=== PATIENT | male | born 1960 | race Caucasian/White ===

== ENCOUNTER → 2025-02-14 10:30 | Outpatient (CLI) | payer OTHER, SELFPAY | PROVIDERS: Family Provider Nurse Practitioner Family; PCP Nurse Practitioner Family; Referring Provider Nurse Practitioner Family; Visit Provider Surgery | DX: L08.89 Other specified local infections of the skin and subcutaneous tissue (principal); B95.2 Enterococcus as the cause of diseases classified elsewhere; L97.812 Non-pressure chronic ulcer of other part of right lower leg with fat layer exposed; I10 Essential (primary) hypertension; R60.0 Localized edema | CPT/HCPCS: 11042; 87070; 87075; 87077; 87186; 87205; 99203; 99214 ==

== ENCOUNTER → 2025-02-21 09:50 | Outpatient (CLI) | payer OTHER, SELFPAY | PROVIDERS: Family Provider Nurse Practitioner Family; PCP Nurse Practitioner Family; Referring Provider Nurse Practitioner Family; Visit Provider Surgery | DX: L97.812 Non-pressure chronic ulcer of other part of right lower leg with fat layer exposed (principal) | CPT/HCPCS: 11042 ==

== ENCOUNTER → 2025-02-21 10:12 | Outpatient (CLI) | payer OTHER, SELFPAY ==
--- NOTE | 2025-02-21 10:13 | DI.RAD.S_ITS ---
PROCEDURE: XR TIBIA FUBULA RT 2V INDICATIONS: eval for bone fragments, osteo TECHNIQUE: 2 views of the tibia and fibula were acquired. COMPARISON: None. FINDINGS: Bones: No acute fractures or dislocations. Chronic distal tibia and fibular fracture is healed with deformity. No suspicious bony lesions. No osseous erosions or periosteal reaction. Soft tissues: No suspicious or masses. Small dystrophic calcifications in the soft tissues anterior to the distal tibia. No soft tissue gas. IMPRESSION: No twan evidence of osteomyelitis. Plain film radiographs can be insensitive to osteomyelitis during the initial phase of the disease process. If there is clinical concern for osteomyelitis, then three-phase nuclear medicine bone scan or MRI should be considered for further evaluation. Dictated by: Helene Henson MD, PhD on 02/21/2025 at 11:17 Approved by: Helene Henson MD, PhD on 02/21/2025 at 11:18
== END ==
PROVIDERS: Family Provider Nurse Practitioner Family; PCP Nurse Practitioner Family; Referring Provider Surgery; Visit Provider Surgery
DX: L97.812 Non-pressure chronic ulcer of other part of right lower leg with fat layer exposed (principal)
CPT/HCPCS: 11042; 73590

== ENCOUNTER → 2025-03-01 14:53 | Outpatient (CLI) | payer OTHER, SELFPAY | LOC: WC 14:53 | PROVIDERS: Family Provider Nurse Practitioner Family; PCP Nurse Practitioner Family; Referring Provider Nurse Practitioner Family; Visit Provider Surgery | DX: L08.9 Local infection of the skin and subcutaneous tissue, unspecified (principal); L97.812 Non-pressure chronic ulcer of other part of right lower leg with fat layer exposed; I10 Essential (primary) hypertension | CPT/HCPCS: 11042 ==

== ENCOUNTER → 2025-03-08 14:51 | Outpatient (CLI) | payer OTHER, SELFPAY | PROVIDERS: Family Provider Nurse Practitioner Family; PCP Nurse Practitioner Family; Referring Provider Nurse Practitioner Family; Visit Provider Surgery | DX: L97.812 Non-pressure chronic ulcer of other part of right lower leg with fat layer exposed (principal); L08.9 Local infection of the skin and subcutaneous tissue, unspecified | CPT/HCPCS: 11042 ==

== ENCOUNTER → 2025-03-08 16:56 | Outpatient (CLI) | payer OTHER, SELFPAY ==
--- NOTE | 2025-03-08 16:57 | DI.MRI.S_ITS ---
PROCEDURE: MR LOWER LEG RT WO/W CON
== END ==
PROVIDERS: Family Provider Nurse Practitioner Family; PCP Nurse Practitioner Family; Referring Provider Surgery; Visit Provider Surgery
DX: L97.812 Non-pressure chronic ulcer of other part of right lower leg with fat layer exposed (principal); M86.9 Osteomyelitis, unspecified; S86.811A Strain of other muscle(s) and tendon(s) at lower leg level, right leg, initial encounter
CPT/HCPCS: 73720; A9579

== ENCOUNTER → 2025-03-15 09:32 | Outpatient (CLI) | payer OTHER, SELFPAY | LOC: WC 09:34 | PROVIDERS: Family Provider Nurse Practitioner Family; PCP Nurse Practitioner Family; Referring Provider Nurse Practitioner Family; Visit Provider Surgery | DX: L97.812 Non-pressure chronic ulcer of other part of right lower leg with fat layer exposed (principal); M86.161 Other acute osteomyelitis, right tibia and fibula; L53.8 Other specified erythematous conditions; F17.200 Nicotine dependence, unspecified, uncomplicated | CPT/HCPCS: 11042; 99213 ==

== ENCOUNTER → 2025-03-22 12:13 | Outpatient (CLI) | payer OTHER, SELFPAY | LOC: WC 12:13 | PROVIDERS: Family Provider Nurse Practitioner Family; PCP Nurse Practitioner Family; Referring Provider Nurse Practitioner Family; Visit Provider Surgery | DX: L97.812 Non-pressure chronic ulcer of other part of right lower leg with fat layer exposed (principal); M86.161 Other acute osteomyelitis, right tibia and fibula; L53.8 Other specified erythematous conditions | CPT/HCPCS: 11042 ==

== ENCOUNTER → 2025-04-04 14:41 | Outpatient (CLI) | payer OTHER, SELFPAY | LOC: WC 14:45 | PROVIDERS: Family Provider Nurse Practitioner Family; PCP Nurse Practitioner Family; Referring Provider Nurse Practitioner Family; Visit Provider Surgery | DX: L97.812 Non-pressure chronic ulcer of other part of right lower leg with fat layer exposed (principal); M86.161 Other acute osteomyelitis, right tibia and fibula; L53.8 Other specified erythematous conditions | CPT/HCPCS: 11042 ==

== ENCOUNTER → 2025-04-11 16:05 | Outpatient (CLI) | payer OTHER, SELFPAY | LOC: WC 16:05 | PROVIDERS: Family Provider Nurse Practitioner Family; PCP Nurse Practitioner Family; Referring Provider Nurse Practitioner Family; Visit Provider Surgery | DX: L97.812 Non-pressure chronic ulcer of other part of right lower leg with fat layer exposed (principal); L53.9 Erythematous condition, unspecified; R60.0 Localized edema; S81.801S Unspecified open wound, right lower leg, sequela; M86.9 Osteomyelitis, unspecified; I10 Essential (primary) hypertension | CPT/HCPCS: 11042; 99213 ==

== ENCOUNTER → 2025-04-23 10:24 | Outpatient (CLI) | payer OTHER, SELFPAY | LOC: WC 10:26 | PROVIDERS: Family Provider Nurse Practitioner Family; PCP Nurse Practitioner Family; Referring Provider Nurse Practitioner Family; Visit Provider Surgery | DX: L97.812 Non-pressure chronic ulcer of other part of right lower leg with fat layer exposed (principal); M86.161 Other acute osteomyelitis, right tibia and fibula; L53.8 Other specified erythematous conditions; I10 Essential (primary) hypertension | CPT/HCPCS: 11042 ==

== ENCOUNTER → 2025-05-02 10:18 | Outpatient (CLI) | payer OTHER, SELFPAY | LOC: WC 10:32 | PROVIDERS: Family Provider Nurse Practitioner Family; PCP Nurse Practitioner Family; Referring Provider Nurse Practitioner Family; Visit Provider Surgery | DX: L97.812 Non-pressure chronic ulcer of other part of right lower leg with fat layer exposed (principal); L53.9 Erythematous condition, unspecified; S81.801S Unspecified open wound, right lower leg, sequela | CPT/HCPCS: 11042 ==